=== PATIENT | female | born 1995 | race American Indian/Alaskan Native ===

== ENCOUNTER 2025-02-16 12:42 | Inpatient (IN) ==
[2025-02-16] MEDS: 0.9 % SODIUM CHLORIDE 1,000 ML IV ONE (13:35)
[2025-02-16] MEDS: KETOROLAC 15 MG/ML VIAL IV ONE (14:00)
[2025-02-16] MEDS: ONDANSETRON 4 MG/2 ML VIAL IV ONE (14:01)
[2025-02-16 14:29] LABS: Basophils # (Auto) 0.03 K/mcL (0.00-0.30); Basophils % (Auto) 0.3 % (0.0-2.0); Eosinophils # (Auto) 0.16 K/mcL (0.00-0.70); Eosinophils % (Auto) 1.8 % (0.0-7.0); Hematocrit 37.0 % (34.1-44.9); Hemoglobin 11.8 g/dL (11.2-15.7); Lymphocytes # (Auto) 1.62 K/mcL (1.50-4.80); Lymphocytes % (Auto) 17.9 % (15.5-49.0); Mean Corpuscular HGB Conc 31.9 g/dL (31.0-36.0); Monocytes # (Auto) 0.53 K/mcL (0.10-0.90); Monocytes % (Auto) 5.9 % (1.0-12.0); Neutrophils % (Auto) 73.9 % (38.0-78.0); Platelet Count 355 K/mcL (140-440); RBC 4.75 M/mcL (3.59-5.38); WBC 9.0 K/mcL (4.5-11.0)
[2025-02-16 14:56] LABS: C-Reactive Protein 2.57 mg/dL (0.03-0.80)
[2025-02-16 14:58] LABS: ALT/SGPT 17 U/L (<40); AST/SGOT 18 U/L (<32); Albumin 3.5 gm/dL (3.2-5.2); Albumin/Globulin Ratio 1.2 (1.0-2.3); Alkaline Phosphatase 61 U/L (39-117); Anion Gap 10.0 (8.0-16.0); Bilirubin,Total 0.4 mg/dL (0.1-1.0); Blood Urea Nitrogen 6 mg/dL (6-20); Calcium 8.2 mg/dL (8.6-10.4); Carbon Dioxide 22 mmol/L (22-30); Chloride 105 mmol/L (96-108); Globulin 2.9 gm/dL (2.2-3.7); Glucose 85 mg/dL (70-105); Potassium 3.9 mmol/L (3.3-5.1); Sodium 137 mmol/L (133-145)
[2025-02-16 16:34] LABS: Bilirubin,Urine Negative (Negative); Color,Urine Yellow; Glucose,Urine (UA) Negative (Negative); Ketones,Urine Trace mg/dL (Negative); Leukocyte Esterase,Urine Negative /uL (Negative); PH,Urine 5.5 (5.0-9.0); Protein,Urine Negative (Negative); Specific Gravity,Urine 1.010 (1.000-1.035); Urobilinogen,Urine Normal
[2025-02-16] MEDS: LACTATED RINGERS 1,000 ML IV SCH (19:06)
[2025-02-16] MEDS: PIPERACILLIN SODIUM/TAZOBACTAM 4.5 GM in DEXTROSE 5% IN WATER 50 ML IV ONE ×3 (19:54→21:57)
[2025-02-16] MEDS: MELATONIN 3 MG TABLET PO SCH (21:40)
[2025-02-16] MEDS: HEPARIN 5,000 UNIT/ML VIAL SQ SCH (21:51)
[2025-02-16] MEDS: 0.9 % SODIUM CHLORIDE 10 ML SYRINGE IV SCH (21:51)
[2025-02-16] MEDS: PIPERACILLIN SODIUM/TAZOBACTAM 3.375 GM in DEXTROSE 5% IN WATER 100 ML IV SCH (21:56)
[2025-02-16] MEDS ORDERED: PIPERACILLIN SODIUM/TAZOBACTAM 4.5 GM in DEXTROSE 5% IN WATER 100 ML IV SCH (22:00)
[2025-02-16] MEDS: PIPERACILLIN SODIUM/TAZOBACTAM 4.5 GM in DEXTROSE 5% IN WATER 100 ML IV SCH (23:33)
[2025-02-17] MEDS: KETOROLAC 10 MG TABLET PO PRN (03:43)
[2025-02-17 07:06] LABS: Basophils # (Auto) 0.02 K/mcL (0.00-0.30); Basophils % (Auto) 0.3 % (0.0-2.0); Eosinophils # (Auto) 0.21 K/mcL (0.00-0.70); Eosinophils % (Auto) 3.5 % (0.0-7.0); Hematocrit 36.0 % (34.1-44.9); Hemoglobin 11.5 g/dL (11.2-15.7); Lymphocytes # (Auto) 1.57 K/mcL (1.50-4.80); Lymphocytes % (Auto) 26.2 % (15.5-49.0); Mean Corpuscular HGB Conc 31.9 g/dL (31.0-36.0); Monocytes # (Auto) 0.43 K/mcL (0.10-0.90); Monocytes % (Auto) 7.2 % (1.0-12.0); Neutrophils % (Auto) 62.6 % (38.0-78.0); Platelet Count 356 K/mcL (140-440); RBC 4.57 M/mcL (3.59-5.38); WBC 6.0 K/mcL (4.5-11.0)
[2025-02-17 07:18] LABS: ALT/SGPT 17 U/L (<40); AST/SGOT 20 U/L (<32); Albumin 3.4 gm/dL (3.2-5.2); Albumin/Globulin Ratio 1.2 (1.0-2.3); Alkaline Phosphatase 57 U/L (39-117); Anion Gap 10.0 (8.0-16.0); Bilirubin,Direct 0.2 mg/dL (<0.3); Bilirubin,Total 0.4 mg/dL (0.1-1.0); Blood Urea Nitrogen 5 mg/dL (6-20); Calcium 8.1 mg/dL (8.6-10.4); Carbon Dioxide 23 mmol/L (22-30); Chloride 107 mmol/L (96-108); Globulin 2.8 gm/dL (2.2-3.7); Glucose 82 mg/dL (70-105); Phosphorous 3.1 mg/dL (2.5-4.5); Potassium 3.7 mmol/L (3.3-5.1); Sodium 140 mmol/L (133-145); Triglycerides 80 mg/dL (<150); Uric Acid 5.5 mg/dL (2.5-8.0)
[2025-02-17] MEDS: ACETAMINOPHEN 1,000 MG/100 ML BAG IV PRN (07:42)
[2025-02-17] MEDS: ONDANSETRON 4 MG/2 ML VIAL IV PRN (14:22)
[2025-02-17] MEDS: LACTATED RINGERS 1,000 ML IV SCH (19:55)
[2025-02-18 07:07] LABS: Basophils # (Auto) 0.02 K/mcL (0.00-0.30); Basophils % (Auto) 0.3 % (0.0-2.0); Eosinophils # (Auto) 0.24 K/mcL (0.00-0.70); Eosinophils % (Auto) 3.8 % (0.0-7.0); Hematocrit 39.7 % (34.1-44.9); Hemoglobin 12.3 g/dL (11.2-15.7); Lymphocytes # (Auto) 1.47 K/mcL (1.50-4.80); Lymphocytes % (Auto) 23.3 % (15.5-49.0); Mean Corpuscular HGB Conc 31.0 g/dL (31.0-36.0); Monocytes # (Auto) 0.44 K/mcL (0.10-0.90); Monocytes % (Auto) 7.0 % (1.0-12.0); Neutrophils % (Auto) 65.3 % (38.0-78.0); Platelet Count 323 K/mcL (140-440); RBC 4.86 M/mcL (3.59-5.38); WBC 6.3 K/mcL (4.5-11.0)
[2025-02-18 07:29] LABS: C-Reactive Protein 2.43 mg/dL (0.03-0.80)
[2025-02-18 07:31] LABS: ALT/SGPT 14 U/L (<40); AST/SGOT 21 U/L (<32); Albumin 3.3 gm/dL (3.2-5.2); Albumin/Globulin Ratio 1.0 (1.0-2.3); Alkaline Phosphatase 57 U/L (39-117); Anion Gap 13.0 (8.0-16.0); Bilirubin,Direct 0.2 mg/dL (<0.3); Bilirubin,Total 0.5 mg/dL (0.1-1.0); Blood Urea Nitrogen 4 mg/dL (6-20); Calcium 8.2 mg/dL (8.6-10.4); Carbon Dioxide 22 mmol/L (22-30); Chloride 106 mmol/L (96-108); Globulin 3.2 gm/dL (2.2-3.7); Glucose 74 mg/dL (70-105); Phosphorous 3.1 mg/dL (2.5-4.5); Potassium 3.7 mmol/L (3.3-5.1); Sodium 141 mmol/L (133-145); Triglycerides 99 mg/dL (<150); Uric Acid 5.4 mg/dL (2.5-8.0)
[2025-02-19 08:04] LABS: Basophils # (Auto) 0.02 K/mcL (0.00-0.30); Basophils % (Auto) 0.4 % (0.0-2.0); Eosinophils # (Auto) 0.21 K/mcL (0.00-0.70); Eosinophils % (Auto) 4.0 % (0.0-7.0); Hematocrit 39.5 % (34.1-44.9); Hemoglobin 12.4 g/dL (11.2-15.7); Lymphocytes # (Auto) 1.34 K/mcL (1.50-4.80); Lymphocytes % (Auto) 25.8 % (15.5-49.0); Mean Corpuscular HGB Conc 31.4 g/dL (31.0-36.0); Monocytes # (Auto) 0.33 K/mcL (0.10-0.90); Monocytes % (Auto) 6.4 % (1.0-12.0); Neutrophils % (Auto) 63.2 % (38.0-78.0); Platelet Count 339 K/mcL (140-440); RBC 4.92 M/mcL (3.59-5.38); WBC 5.2 K/mcL (4.5-11.0)
[2025-02-19 08:20] LABS: ALT/SGPT 14 U/L (<40); AST/SGOT 27 U/L (<32); Albumin 3.3 gm/dL (3.2-5.2); Albumin/Globulin Ratio 1.0 (1.0-2.3); Alkaline Phosphatase 55 U/L (39-117); Anion Gap 12.0 (8.0-16.0); Bilirubin,Direct 0.2 mg/dL (<0.3); Bilirubin,Total 0.4 mg/dL (0.1-1.0); Blood Urea Nitrogen 3 mg/dL (6-20); Calcium 8.4 mg/dL (8.6-10.4); Carbon Dioxide 23 mmol/L (22-30); Chloride 106 mmol/L (96-108); Globulin 3.3 gm/dL (2.2-3.7); Glucose 78 mg/dL (70-105); Phosphorous 3.1 mg/dL (2.5-4.5); Potassium 3.7 mmol/L (3.3-5.1); Sodium 141 mmol/L (133-145); Triglycerides 97 mg/dL (<150); Uric Acid 5.8 mg/dL (2.5-8.0)
[2025-02-19 08:20] LABS: C-Reactive Protein 2.12 mg/dL (0.03-0.80)
[2025-02-19] MEDS: metroNIDAZOLE 500 MG/100 ML BAG IV SCH (09:59)
[2025-02-19] MEDS: CIPROFLOXACIN 400 MG/200 ML BAG IV SCH (10:00)
[2025-02-20 06:29] LABS: Basophils # (Auto) 0.03 K/mcL (0.00-0.30); Basophils % (Auto) 0.6 % (0.0-2.0); Eosinophils # (Auto) 0.20 K/mcL (0.00-0.70); Eosinophils % (Auto) 4.1 % (0.0-7.0); Hematocrit 40.6 % (34.1-44.9); Hemoglobin 12.9 g/dL (11.2-15.7); Lymphocytes # (Auto) 1.17 K/mcL (1.50-4.80); Lymphocytes % (Auto) 24.2 % (15.5-49.0); Mean Corpuscular HGB Conc 31.8 g/dL (31.0-36.0); Monocytes # (Auto) 0.35 K/mcL (0.10-0.90); Monocytes % (Auto) 7.2 % (1.0-12.0); Neutrophils % (Auto) 63.3 % (38.0-78.0); Platelet Count 353 K/mcL (140-440); RBC 5.15 M/mcL (3.59-5.38); WBC 4.8 K/mcL (4.5-11.0)
[2025-02-20 06:50] LABS: ALT/SGPT 28 U/L (<40); AST/SGOT 52 U/L (<32); Albumin 3.6 gm/dL (3.2-5.2); Albumin/Globulin Ratio 1.1 (1.0-2.3); Alkaline Phosphatase 55 U/L (39-117); Anion Gap 11.0 (8.0-16.0); Bilirubin,Direct < 0.2 mg/dL (0-0.3); Bilirubin,Total 0.4 mg/dL (0.1-1.0); Blood Urea Nitrogen 3 mg/dL (6-20); Calcium 8.7 mg/dL (8.6-10.4); Carbon Dioxide 24 mmol/L (22-30); Chloride 104 mmol/L (96-108); Globulin 3.2 gm/dL (2.2-3.7); Glucose 76 mg/dL (70-105); Phosphorous 3.3 mg/dL (2.5-4.5); Potassium 3.7 mmol/L (3.3-5.1); Sodium 139 mmol/L (133-145); Triglycerides 102 mg/dL (<150); Uric Acid 6.1 mg/dL (2.5-8.0)
[2025-02-20] MEDS: LACTATED RINGERS 1,000 ML IV SCH (10:08)
[2025-02-20] MEDS: BUTALB/ACETAMINOPHEN/CAFFEINE 1 TABLET PO SCH (16:11)
[2025-02-21 05:55] LABS: Basophils # (Auto) 0.03 K/mcL (0.00-0.30); Basophils % (Auto) 0.5 % (0.0-2.0); Eosinophils # (Auto) 0.21 K/mcL (0.00-0.70); Eosinophils % (Auto) 3.7 % (0.0-7.0); Hematocrit 40.6 % (34.1-44.9); Hemoglobin 12.8 g/dL (11.2-15.7); Lymphocytes # (Auto) 1.31 K/mcL (1.50-4.80); Lymphocytes % (Auto) 23.1 % (15.5-49.0); Mean Corpuscular HGB Conc 31.5 g/dL (31.0-36.0); Monocytes # (Auto) 0.48 K/mcL (0.10-0.90); Monocytes % (Auto) 8.5 % (1.0-12.0); Neutrophils % (Auto) 63.7 % (38.0-78.0); Platelet Count 336 K/mcL (140-440); RBC 5.09 M/mcL (3.59-5.38); WBC 5.7 K/mcL (4.5-11.0)
[2025-02-21 06:12] LABS: ALT/SGPT 40 U/L (<40); AST/SGOT 67 U/L (<32); Albumin 3.5 gm/dL (3.2-5.2); Albumin/Globulin Ratio 1.1 (1.0-2.3); Alkaline Phosphatase 57 U/L (39-117); Anion Gap 14.0 (8.0-16.0); Bilirubin,Direct < 0.2 mg/dL (0-0.3); Bilirubin,Total 0.4 mg/dL (0.1-1.0); Blood Urea Nitrogen 5 mg/dL (6-20); Calcium 8.6 mg/dL (8.6-10.4); Carbon Dioxide 21 mmol/L (22-30); Chloride 102 mmol/L (96-108); Globulin 3.3 gm/dL (2.2-3.7); Glucose 65 mg/dL (70-105); Phosphorous 3.3 mg/dL (2.5-4.5); Potassium 3.7 mmol/L (3.3-5.1); Sodium 137 mmol/L (133-145); Triglycerides 91 mg/dL (<150); Uric Acid 7.3 mg/dL (2.5-8.0)
[2025-02-21] MEDS ORDERED: IOPAMIDOL 100 ML BOTTLE IV ONE (09:10)
[2025-02-21] MEDS: PIPERACILLIN SODIUM/TAZOBACTAM 4.5 GM in DEXTROSE 5% IN WATER 100 ML IV ONE (10:03)
[2025-02-21] MEDS: LACTATED RINGERS 1,000 ML IV SCH (11:19)
[2025-02-21] MEDS: PIPERACILLIN SODIUM/TAZOBACTAM 4.5 GM in DEXTROSE 5% IN WATER 100 ML IV SCH (13:55)
[2025-02-21] MEDS: POLYETHYLENE GLYCOL 3350 17 GM PACKET PO SCH (16:30)
[2025-02-21] MEDS: SIMETHICONE 80 MG TAB.CHEW CHEWED SCH (17:06)
[2025-02-22 06:10] LABS: Basophils # (Auto) 0.02 K/mcL (0.00-0.30); Basophils % (Auto) 0.3 % (0.0-2.0); Eosinophils # (Auto) 0.22 K/mcL (0.00-0.70); Eosinophils % (Auto) 3.7 % (0.0-7.0); Hematocrit 40.8 % (34.1-44.9); Hemoglobin 12.6 g/dL (11.2-15.7); Lymphocytes # (Auto) 1.27 K/mcL (1.50-4.80); Lymphocytes % (Auto) 21.4 % (15.5-49.0); Mean Corpuscular HGB Conc 30.9 g/dL (31.0-36.0); Monocytes # (Auto) 0.45 K/mcL (0.10-0.90); Monocytes % (Auto) 7.6 % (1.0-12.0); Neutrophils % (Auto) 66.7 % (38.0-78.0); Platelet Count 329 K/mcL (140-440); RBC 5.04 M/mcL (3.59-5.38); WBC 5.9 K/mcL (4.5-11.0)
[2025-02-22 06:18] LABS: ALT/SGPT 48 U/L (<40); AST/SGOT 76 U/L (<32); Albumin 3.6 gm/dL (3.2-5.2); Albumin/Globulin Ratio 1.1 (1.0-2.3); Alkaline Phosphatase 59 U/L (39-117); Anion Gap 16.0 (8.0-16.0); Bilirubin,Direct 0.2 mg/dL (<0.3); Bilirubin,Total 0.4 mg/dL (0.1-1.0); Blood Urea Nitrogen 4 mg/dL (6-20); C-Reactive Protein 2.72 mg/dL (0.03-0.80); Calcium 8.5 mg/dL (8.6-10.4); Carbon Dioxide 20 mmol/L (22-30); Chloride 101 mmol/L (96-108); Globulin 3.3 gm/dL (2.2-3.7); Glucose 61 mg/dL (70-105); Phosphorous 3.1 mg/dL (2.5-4.5); Potassium 3.7 mmol/L (3.3-5.1); Sodium 137 mmol/L (133-145); Triglycerides 98 mg/dL (<150); Uric Acid 8.4 mg/dL (2.5-8.0)
[2025-02-22] MEDS ORDERED: DEXTROSE 31 GM ORAL.SUSP PO PRN (09:34)
[2025-02-22] MEDS: DEXTROSE 5%-LR 1,000 ML IV SCH ×2 (09:50→17:02)
[2025-02-22] MEDS: DEXTROSE 50% 50 ML VIAL IV PRN (10:16)
[2025-02-22] MEDS: INSULIN LISPRO 1 UNIT/0.01 ML UNIT SQ SCH (11:05)
[2025-02-23] MEDS: POLYETHYLENE GLYCOL 3350 17 GM PACKET PO SCH (09:29)
[2025-02-24] MEDS: ACETAMINOPHEN 325 MG TABLET PO PRN (08:04)
[2025-02-25 06:36] LABS: Basophils # (Auto) 0.02 K/mcL (0.00-0.30); Basophils % (Auto) 0.4 % (0.0-2.0); Eosinophils # (Auto) 0.14 K/mcL (0.00-0.70); Eosinophils % (Auto) 2.9 % (0.0-7.0); Hematocrit 39.7 % (34.1-44.9); Hemoglobin 12.9 g/dL (11.2-15.7); Lymphocytes # (Auto) 1.18 K/mcL (1.50-4.80); Lymphocytes % (Auto) 24.1 % (15.5-49.0); Mean Corpuscular HGB Conc 32.5 g/dL (31.0-36.0); Monocytes # (Auto) 0.42 K/mcL (0.10-0.90); Monocytes % (Auto) 8.6 % (1.0-12.0); Neutrophils % (Auto) 63.6 % (38.0-78.0); Platelet Count 328 K/mcL (140-440); RBC 5.01 M/mcL (3.59-5.38); WBC 4.9 K/mcL (4.5-11.0)
[2025-02-25] MEDS: HEPARIN 5,000 UNIT/ML VIAL SQ SCH (08:49)
[2025-02-25 08:51] LABS: ALT/SGPT 40 U/L (<40); AST/SGOT 39 U/L (<32); Albumin 3.7 gm/dL (3.2-5.2); Albumin/Globulin Ratio 1.1 (1.0-2.3); Alkaline Phosphatase 51 U/L (39-117); Anion Gap 14.0 (8.0-16.0); Bilirubin,Direct 0.3 mg/dL (<0.3); Bilirubin,Total 0.6 mg/dL (0.1-1.0); Blood Urea Nitrogen 4 mg/dL (6-20); Calcium 8.9 mg/dL (8.6-10.4); Carbon Dioxide 23 mmol/L (22-30); Chloride 100 mmol/L (96-108); Globulin 3.3 gm/dL (2.2-3.7); Glucose 79 mg/dL (70-105); Phosphorous 3.7 mg/dL (2.5-4.5); Potassium 3.6 mmol/L (3.3-5.1); Sodium 137 mmol/L (133-145); Triglycerides 104 mg/dL (<150); Uric Acid 5.1 mg/dL (2.5-8.0)
[2025-02-26 07:15] LABS: C-Reactive Protein 1.50 mg/dL (0.03-0.80)
[2025-02-26] MEDS ORDERED: IOPAMIDOL 100 ML BOTTLE IV ONE (09:40)
[2025-02-26] MEDS: FUROSEMIDE 40 MG/4 ML VIAL IV ONE (10:16)
[2025-02-26 12:58] VITALS: O2SAT 96
[2025-02-26 15:50] VITALS: TEMP 97.7
[2025-02-27 13:58] LABS: ALT/SGPT 51 U/L (<40); AST/SGOT 70 U/L (<32); Albumin 3.3 gm/dL (3.2-5.2); Albumin/Globulin Ratio 1.0 (1.0-2.3); Alkaline Phosphatase 56 U/L (39-117); Anion Gap 11.2 (8.0-16.0); Bilirubin,Direct < 0.2 mg/dL (0-0.3); Bilirubin,Total 0.4 mg/dL (0.1-1.0); Blood Urea Nitrogen 3 mg/dL (6-20); C-Reactive Protein 1.61 mg/dL (0.03-0.80); Calcium 8.6 mg/dL (8.6-10.4); Carbon Dioxide 22 mmol/L (22-30); Chloride 104 mmol/L (96-108); Globulin 3.3 gm/dL (2.2-3.7); Glucose 95 mg/dL (70-105); Phosphorous 2.6 mg/dL (2.5-4.5); Potassium 3.5 mmol/L (3.3-5.1); Sodium 137 mmol/L (133-145); Triglycerides 96 mg/dL (<150); Uric Acid 6.9 mg/dL (2.5-8.0)
[2025-02-27 14:02] LABS: ALT/SGPT 48 U/L (<40); AST/SGOT 49 U/L (<32); Albumin 3.4 gm/dL (3.2-5.2); Albumin/Globulin Ratio 1.1 (1.0-2.3); Alkaline Phosphatase 49 U/L (39-117); Anion Gap 12.1 (8.0-16.0); Bilirubin,Direct < 0.2 mg/dL (0-0.3); Bilirubin,Total 0.3 mg/dL (0.1-1.0); Blood Urea Nitrogen 2 mg/dL (6-20); Calcium 8.6 mg/dL (8.6-10.4); Carbon Dioxide 24 mmol/L (22-30); Chloride 104 mmol/L (96-108); Globulin 3.2 gm/dL (2.2-3.7); Glucose 99 mg/dL (70-105); Phosphorous 3.3 mg/dL (2.5-4.5); Potassium 3.4 mmol/L (3.3-5.1); Sodium 140 mmol/L (133-145); Triglycerides 109 mg/dL (<150); Uric Acid 5.2 mg/dL (2.5-8.0)
[2025-02-27 14:04] LABS: Basophils # (Auto) 0.03 K/mcL (0.00-0.30); Basophils % (Auto) 0.5 % (0.0-2.0); Eosinophils # (Auto) 0.19 K/mcL (0.00-0.70); Eosinophils % (Auto) 3.4 % (0.0-7.0); Hematocrit 40.5 % (34.1-44.9); Hemoglobin 12.4 g/dL (11.2-15.7); Lymphocytes # (Auto) 1.41 K/mcL (1.50-4.80); Lymphocytes % (Auto) 25.5 % (15.5-49.0); Mean Corpuscular HGB Conc 30.6 g/dL (31.0-36.0); Monocytes # (Auto) 0.43 K/mcL (0.10-0.90); Monocytes % (Auto) 7.8 % (1.0-12.0); Neutrophils % (Auto) 62.3 % (38.0-78.0); Platelet Count 309 K/mcL (140-440); RBC 4.87 M/mcL (3.59-5.38); WBC 5.5 K/mcL (4.5-11.0)
[2025-02-27 14:05] LABS: Basophils # (Auto) 0.03 K/mcL (0.00-0.30); Basophils % (Auto) 0.5 % (0.0-2.0); Eosinophils # (Auto) 0.15 K/mcL (0.00-0.70); Eosinophils % (Auto) 2.7 % (0.0-7.0); Hematocrit 39.7 % (34.1-44.9); Hemoglobin 12.4 g/dL (11.2-15.7); Lymphocytes # (Auto) 1.44 K/mcL (1.50-4.80); Lymphocytes % (Auto) 26.4 % (15.5-49.0); Mean Corpuscular HGB Conc 31.2 g/dL (31.0-36.0); Monocytes # (Auto) 0.47 K/mcL (0.10-0.90); Monocytes % (Auto) 8.6 % (1.0-12.0); Neutrophils % (Auto) 61.6 % (38.0-78.0); Platelet Count 310 K/mcL (140-440); RBC 4.90 M/mcL (3.59-5.38); WBC 5.5 K/mcL (4.5-11.0)
== END 2025-02-26 16:51 | disposition home or self-care (01) | DRG 392 ==
LOC: ED 12:42 → MEDSUR 18:34 → ICU 02-21 13:37 → MEDSUR 02-24 15:35
PROVIDERS: ADMIT Student in an Organized Health Care Education/Training Program; ATTEND Internal Medicine